=== PATIENT | female | born 1955 | race Caucasian/White ===

== ENCOUNTER 2022-01-15 11:32 | Outpatient (CLI) | payer MEDICARE, MEDICAID, SELFPAY ==
--- NOTE | 2022-01-15 11:30 | RT.EKG_ITS ---
APPROVED REPORT Exam: Resting ECG Reason for Exam: Chest pain Patient Location: O HR:59 bpm ECG Measurements Heart Rate 59 AXIS NH 169 P 64 QRSd 94 QRS 30 QT 405 T 40 QTc 402 Conclusion Sinus rhythm...normal P axis, V-rate 50- 99 Probable left atrial enlargement...P >50mS, <-0.10mV V1 Poor R wave progression
== END 2022-01-15 11:33 | disposition home or self-care (01) ==
LOC: DI.CM 11:32
PROVIDERS: Visit Provider Nurse Practitioner Family
DX: R07.9 Chest pain, unspecified (principal)
CPT/HCPCS: 93010

== ENCOUNTER 2022-01-15 12:27 | Emergency (ER) | payer MEDICARE, MEDICAID, SELFPAY ==
[2022-01-15 12:30] VITALS: BP 179/84; PULSE 60; RESP 18; TEMP 36.8; O2SAT 98
--- NOTE | 2022-01-15 12:30 | RT.EKG_ITS ---
APPROVED REPORT Exam: Resting ECG Reason for Exam: chest pain Patient Location: E HR:60 bpm ECG Measurements Heart Rate 60 AXIS CA 166 P 60 QRSd 94 QRS 14 QT 408 T 16 QTc 408 Conclusion Sinus rhythm...normal P axis, V-rate 60- 99
--- NOTE | 2022-01-15 12:45 | DI.RAD_ITS ---
Exam(s) XR CHEST 2V PA LATERAL EXAM: XR CHEST 2V PA LATERAL CLINICAL HISTORY: chest pain. TECHNIQUE: 2D digital imaging was performed. COMPARISON: CR CHEST 2 VIEWS PA,LAT from 10/05/2017 FINDINGS: 2 views: Heart size is slightly prominent, unchanged. The mediastinum is not widened. Lungs are clear. No infiltrates nor pleural effusions. No pulmonary edema. No pneumothorax. Mild scoliosis again noted. IMPRESSION: No acute pulmonary findings. DATA REPOSITORY: RADIATION DOSE DELIVERED:
--- NOTE | 2022-01-15 12:56 | ED.GENADUL_ITS ---
Discharge Plan Disposition Patient Disposition: STILL A PATIENT Condition: Stable Discharge Details Clinical Impression: Right-sided chest pain Primary Care Provider: Mariza Carpenter ED Provider: Rivas Mendoza Home Meds and New Rx's Prescriptions: No Action nitroglycerin [Nitrostat] 0.4 MG tablet, sublingual 0.4 mg Sublingual Q5 MIN PRN X3 PRN (Reason: Chest Pain) Qty: 10 0RF aspirin 81 MG tablet,chewable 81 mg PO DAILY 0RF Medical Decision Making This is a 66-year-old female, current smoker, presenting for right-sided chest pain that radiates to her back intermittently for the past 8 days. Nothing makes it worse or better. She is currently asymptomatic. Clinically she appears well, nontoxic. Plan is to initiate cardiac work-up including a D-dimer Initial laboratory values reveal no evidence of leukocytosis, anemia, thrombocytopenia. Her INR is 1.1. D-dimer is 1210, will pursue CTA of the chest. Electrolytes unremarkable. Normal renal function. Initial troponin less than 50. COVID-negative. Lipase 97 Patient remains asymptomatic. Agreeable to obtaining CTA of the chest and a delta troponin Medical Records Medical records reviewed: Yes I reviewed the patient's medical records. Imaging Data Radiologic Study: Attestation: I personally reviewed and interpreted this imaging study as follows: Imaging: X-Ray Radiologist's impression: Exam(s) XR CHEST 2V PA ? LATERAL EXAM:? XR CHEST 2V PA ? LATERAL CLINICAL HISTORY: ? chest pain. ? TECHNIQUE:? 2D digital imaging was performed. COMPARISON:? CR CHEST 2 VIEWS PA,LAT from 10/05/2017 FINDINGS: 2 views: Heart size is slightly prominent, unchanged.? The mediastinum is not widened. Lungs are clear.? No infiltrates nor pleural effusions. No pulmonary edema.? No pneumothorax. Mild scoliosis again noted. IMPRESSION: No acute pulmonary findings. Lab Data Lab results reviewed: Yes I reviewed the patient's lab results. Labs: Laboratory Tests Range/Units 01/15/22 01/15/22 01/15/22 13:05 13:10 13:10 WBC (4.4-10.8) 10^3/uL 4.56 RBC (3.93-5.22) 10^6/uL 4.45 Hgb (11.2-15.7) g/dL 13.4 Hct (36.0-46.0) % 40.7 MCV (80-95) fL 92 MCH (27.0-33.0) pg 30.1 MCHC (32.0-36.0) % 32.9 RDW (11.7-14.6) % 13.6 Plt Count (130-400) 10^3/uL 230 MPV (8.0-11.0) fL 8.8 Immature Gran % 0.2 Neutrophils % 60.8 Lymphocytes % 22.1 Monocytes % 10.3 Eosinophils % 5.5 Basophils % 1.1 Nucleated RBC % (0.0-0.3) % 0.0 Absolute Neutrophils (1.2-6.7) 10^3/uL 2.77 Absolute Lymphocytes (1.2-3.4) 10^3/uL 1.01 L Absolute Monocytes (0.1-0.8) 10^3/uL 0.47 Absolute Eosinophils (0.0-0.7) 10^3/uL 0.25 Absolute Basophils (0.0-0.2) 10^3/uL 0.05 PT (9.3-11.0) sec INR (0.9-1.1) APTT (21.0-27.5) sec D-Dimer (<500) ng/mlFEU Sodium (136-145) mmol/L 140 Potassium (3.5-5.1) mmol/L 4.3 Chloride (98-107) mmol/L 103 Carbon Dioxide (21.0-32.0) mmol/L 31.2 Anion Gap (3-11) mmol/L 5.8 BUN (7-18) mg/dL 15 Creatinine (0.55-1.02) mg/dL 0.8 Estimated GFR/1.73 m2 (mL/min/1.73m2) >= 60.00 Glucose (74-106) mg/dL 95 Calcium (8.5-10.1) mg/dL 8.7 Magnesium (1.8-2.4) mg/dL 1.8 Total Bilirubin (0.2-1.0) mg/dL 0.3 AST (15-37) U/L 47 H ALT (14-59) U/L 40 Alkaline Phosphatase (46-116) U/L 162 H Troponin I (<or=60) ng/L < 50 Total Protein (6.4-8.2) g/dL 7.5 Albumin (3.4-5.0) g/dL 3.9 Lipase (73-393) U/L COVID-19 Source Nasal/Nares SARS-CoV-2 (PCR) (Negative) Negative Range/Units 01/15/22 01/15/22 13:10 13:10 WBC (4.4-10.8) 10^3/uL RBC (3.93-5.22) 10^6/uL Hgb (11.2-15.7) g/dL Hct (36.0-46.0) % MCV (80-95) fL MCH (27.0-33.0) pg MCHC (32.0-36.0) % RDW (11.7-14.6) % Plt Count (130-400) 10^3/uL MPV (8.0-11.0) fL Immature Gran % Neutrophils % Lymphocytes % Monocytes % Eosinophils % Basophils % Nucleated RBC % (0.0-0.3) % Absolute Neutrophils (1.2-6.7) 10^3/uL Absolute Lymphocytes (1.2-3.4) 10^3/uL Absolute Monocytes (0.1-0.8) 10^3/uL Absolute Eosinophils (0.0-0.7) 10^3/uL Absolute Basophils (0.0-0.2) 10^3/uL PT (9.3-11.0) sec 11.3 H INR (0.9-1.1) 1.1 APTT (21.0-27.5) sec 24.1 D-Dimer (<500) ng/mlFEU 1210 H Sodium (136-145) mmol/L Potassium (3.5-5.1) mmol/L Chloride (98-107) mmol/L Carbon Dioxide (21.0-32.0) mmol/L Anion Gap (3-11) mmol/L BUN (7-18) mg/dL Creatinine (0.55-1.02) mg/dL Estimated GFR/1.73 m2 (mL/min/1.73m2) Glucose (74-106) mg/dL Calcium (8.5-10.1) mg/dL Magnesium (1.8-2.4) mg/dL Total Bilirubin (0.2-1.0) mg/dL AST (15-37) U/L ALT (14-59) U/L Alkaline Phosphatase (46-116) U/L Troponin I (<or=60) ng/L Total Protein (6.4-8.2) g/dL Albumin (3.4-5.0) g/dL Lipase (73-393) U/L 97 COVID-19 Source SARS-CoV-2 (PCR) (Negative) ECG Data Attestation: I personally reviewed and interpreted this ECG (s) as follows: Interpretation: Sinus rhythm, ventricular rate of 60, no STEMI HPI General Mode of arrival: ambulatory . Date/Time Provider Initiated Documentation: 01/15/22 12:41 . Limitations to Documentation: no limitations . Information obtained by: patient . HPI Narrative: This is a 66-year-old female who reports that she does not typically seek medical attention, has not been evaluated and likely 4 or 5 years, current smoker, presenting to the ER for 8-day history of intermittent right-sided chest pain. Nothing makes the pain worse or better. It does radiate to her right scapula. She reports that she was seen at the urgent care and sent here for further evaluation. She denies recent illness or trauma. Denies headache, fever, shortness of breath, cough, abdominal pain, nausea, vomiting, change in bowel or bladder function, pain or swelling her legs. She does report that the pain on the right side of her chest has been intermittent and ranges anywhere from a 2 out of 10 up to an 8 out of 10, a pressure, at times sharp. She is currently asymptomatic. Related Data Home Medications Medication Instructions Recorded Confirmed aspirin 81 mg chewable tablet 81 mg PO DAILY 10/06/17 01/15/22 nitroglycerin 0.4 mg sublingual 0.4 mg sublingual Q5 MIN PRN X3 10/06/17 01/15/22 tablet (Nitrostat) PRN Chest Pain #10 tabs Previous Rx's Medication Instructions Recorded aspirin 81 mg chewable tablet 81 mg PO DAILY 10/06/17 nitroglycerin 0.4 mg sublingual 0.4 mg sublingual Q5 MIN PRN X3 10/06/17 tablet (Nitrostat) PRN Chest Pain #10 tabs Allergies Allergy/AdvReac Type Severity Reaction Status Date / Time No Known Allergies Allergy Unverified 01/15/22 11:27 General Stated Complaint: Chest Pain JOLEEN: 3 Review of Systems Constitutional Constitutional: Denies fatigue, Denies fever(s), Denies headache(s) and Denies weakness ENT Ears, Nose, Mouth, and Throat: Denies headache(s) and Denies neck pain Cardiovascular Cardiovascular: Reports chest pain and Denies dyspnea Respiratory Respiratory: Denies cough and Denies dyspnea Gastrointestinal Gastrointestinal: Denies abdominal pain, Denies nausea and Denies vomiting Musculoskeletal Musculoskeletal: Reports back pain, Denies neck pain, Denies numbness and Denies tingling Integumentary/Breasts Skin/Breast: Denies rash Neurologic Neurologic: Denies headache(s), Denies numbness, Denies tingling and Denies weakness Endocrine Endocrine: Denies fatigue Hematologic/Lymphatic Hematologic/Lymphatic: Denies easy bleeding and Denies easy bruising PFSH All Active Problems (Updated 01/15/22 @ 14:54 by NICOLAS Hoyt) Right-sided chest pain (Acute) Medical History Ovarian cyst, left Tobacco use Surgical History section finger surgery Social History Smoking/Tobacco Use Status: Current every day Tobacco Type: cigarettes Smoking risk assessment performed?: Yes Alcohol Intake: current Alcohol Intake frequency: 0-2 drinks per day Alcohol type: wine Drug use: Never Substance use type: does not use Do you feel safe at home: Yes Do you feel safe in your relationship?: Yes Exam Const General: cooperative, healthy appearing, comfortable and no acute distress Orientation: alert and awake [facility] Head: normal to inspection, normocephalic and atraumatic Face and sinus: normal facial exam Mouth: moist mucous membranes Eyes General: appearance normal, both eyes and all related structures Conjunctivae: conjunctivae normal Neck Neck: normal visual inspection, full ROM, trachea midline and supple Chest Chest: normal inspection of the chest and normal palpation of entire chest wall Resp Effort & Inspection: normal respiratory effort and able to speak in complete sentences Auscultation: clear to auscultation bilaterally Cardio Rate: regular rate Rhythm: regular rhythm GI Palpation: soft, not firm, no guarding, no pulsatile masses and nontender Back/Spine/Pelvis Back: no CVA tenderness and No back tenderness Skin General skin exam: no rashes or lesions noted Neuro General: patient alert, patient awake, moves all extremities and no focal motor deficits Cognition: normal cognition Speech: speech normal Gait: normal gait Motor: muscle tone normal throughout Sensory Exam: no sensory deficits noted Extrem General: normal to inspection, full ROM, capillary refill normal, no pedal edema and no calf tenderness Psych Appearance: grossly normal Mental Status: mental status grossly normal Course Vital Signs Vital signs: Vital Signs Temperature 36.8 C 01/15/22 12:30 Pulse 60 01/15/22 12:30 Respiratory Rate 18 01/15/22 12:30 Blood Pressure 179/84 H 01/15/22 12:30 Pulse Oximetry 98 01/15/22 12:30 Temperature 36.8 C 01/15/22 12:30 Temperature Source Temporal Artery Scan 01/15/22 12:30 Pulse 60 01/15/22 12:30 Respiratory Rate 18 01/15/22 12:30 Blood Pressure 179/84 H 01/15/22 12:30 Blood Pressure Position Sitting 01/15/22 12:30 Pulse Oximetry 98 01/15/22 12:30 Oxygen Delivery Method Room Air 01/15/22 12:30 Oxygen Flow Rate 0 01/15/22 12:30 Comment 01/15/22 12:30
[2022-01-15 13:10] LABS: Source Nasal/Nares
[2022-01-15 13:20] LABS: Abs Immature Grans 0.01 10^3/uL (0.0-0.06); Absolute Basophil Count 0.05 10^3/uL (0.0-0.2); Absolute Eosinophil Count 0.25 10^3/uL (0.0-0.7); Absolute Lymphocyte Count 1.01 10^3/uL (1.2-3.4); Absolute Monocyte Count 0.47 10^3/uL (0.1-0.8); Absolute Neutrophil Count 2.77 10^3/uL (1.2-6.7); Basophils % 1.1; Eosinophils % 5.5; HCT 40.7 % (36.0-46.0); HGB 13.4 g/dL (11.2-15.7); Immature Grans % 0.2; Lymphocytes % 22.1; MCH 30.1 pg (27.0-33.0); MCHC 32.9 % (32.0-36.0); MCV 92 fL (80-95); MPV 8.8 fL (8.0-11.0); Monocytes % 10.3; Neutrophils % 60.8; Platelet Count 230 10^3/uL (130-400); RBC 4.45 10^6/uL (3.93-5.22); RDW 13.6 % (11.7-14.6); RDW-SD 45.9 fL; WBC 4.56 10^3/uL (4.4-10.8)
[2022-01-15 13:34] LABS: INR 1.1 (0.9-1.1); PTT Activated 24.1 sec (21.0-27.5); Prothrombin Time 11.3 sec (9.3-11.0)
[2022-01-15 13:38] LABS: Lipase 97 U/L (73-393)
[2022-01-15 13:40] LABS: ALT 40 U/L (14-59); AST 47 U/L (15-37); Albumin 3.9 g/dL (3.4-5.0); Alkaline Phosphatase 162 U/L (46-116); Anion Gap 5.8 mmol/L (3-11); BUN 15 mg/dL (7-18); Bilirubin, Total 0.3 mg/dL (0.2-1.0); CO2 31.2 mmol/L (21.0-32.0); CREATININE 0.8 mg/dL (0.55-1.02); Calcium 8.7 mg/dL (8.5-10.1); Chloride 103 mmol/L (98-107); Glucose 95 mg/dL (74-106); Magnesium 1.8 mg/dL (1.8-2.4); Potassium 4.3 mmol/L (3.5-5.1); Sodium 140 mmol/L (136-145); Total Protein 7.5 g/dL (6.4-8.2); Troponin I < 50 ng/L (<or=60)
[2022-01-15 13:48] LABS: COVID-19 PCR Negative (Negative)
[2022-01-15 13:51] LABS: D-Dimer 1210 ng/mlFEU (<500)
[2022-01-15 14:15] VITALS: BP 175/78; PULSE 54; O2SAT 98
[2022-01-15 14:18] VITALS: BP 171/82; PULSE 55; RESP 18; TEMP 36.4; O2SAT 98
--- NOTE | 2022-01-15 14:30 | DI.CT_ITS ---
Exam(s) CT CHEST PE CTA EXAM: CT CHEST PE CTA CLINICAL HISTORY: R sided chest pain, elevated dimer. TECHNIQUE: Imaging Protocol: CT angiography of the chest was performed using pulmonary embolus juan luis col. Multi planar reconstructions were performed. CONTRAST MATERIAL: Intravenous: Omnipaque 350 Contrast volume: 62 cc COMPARISON: CR XR CHEST 2V PA LATERAL from 01/15/2022 FINDINGS: CHEST: PULMONARY ARTERIES: There are no intraluminal filling defects to suggest acute pulmonary emboli. LUNGS: There is symmetrical dependent markings in both lower lobes, not associated with pleural effus ions.. No significant focal findings in the trachea and mainstem bronchi. MEDIASTINUM: There is no hilar nor mediastinal adenopathy. Visualized thyroid unremarkable. CARDIAC: Cardiomegaly. No pericardial effusion.Caliber of the thoracic aorta is upper normal.. No d issection. Ventricular ratio is 1/1 PARTIALLY VISUALIZED UPPERMOST ABDOMEN: No obvious findings OSSEOUS: No significant osseous lesions.. IMPRESSION: 1. No evidence of acute pulmonary emboli. No evidence of pulmonary infarction.No pleural effusions. 2. Mild increased markings both lower lobes. No air bronchograms. No pleural effusions. 3. Cardiomegaly. No pericardial. No evidence of aortic dissection. RADIATION DOSE DELIVERED: 259.04mGy.cm Total DLP DATA REPOSITORY: All CT scans at this facility are submitted to the National Radiology Data Registry (NRDR) Dose Index Registry (DIR) with the [employer] (ACR). RADIATION OPTIMIZATION: All CT scans at this facility use at least one of these dose optimization te chniques: automated exposure control; mA and/or kV adjustment per patient size (includes targeted exa ms where dose is matched to clinical indication); or iterative reconstruction.
[2022-01-15] MEDS: Omnipaque 350 MG/ML 100 ML BTL IJ (16:12)
[2022-01-15] MEDS: Normal Saline Flush 10 ML SYR IVP (16:13)
--- NOTE | 2022-01-15 16:30 | RT.EKG_ITS ---
APPROVED REPORT Exam: Resting ECG Reason for Exam: repeat ekg Patient Location: E HR:51 bpm ECG Measurements Heart Rate 51 AXIS ND 170 P 66 QRSd 96 QRS 13 QT 448 T 10 QTc 412 Conclusion Sinus bradycardia...rate< 60 Physician: inverted t wave in III, no stemi
[2022-01-15 16:56] LABS: Troponin I < 50 ng/L (<or=60)
--- NOTE | 2022-01-15 17:21 | NUR.NOTE ---
Nursing Note: Referral faxed to PCP for chest pain/ED follow up within 1 week.
--- NOTE | 2022-01-15 17:23 | NUR.NOTE ---
Nursing Note: Request for regular exercise treadmill test/stress test/ for chest pain, faxed to [facility]
[2022-01-15 17:39] VITALS: BP 164/85; PULSE 51; RESP 16; TEMP 36.6; O2SAT 98
--- NOTE | 2022-01-15 19:36 | ED.FU.B_ITS ---
Follow Up Plan: Care is accepted in signout from Rivas Mendoza, physician assistant loan processor pending CTA and repeat troponin, CTA does not show evidence of acute process repeat troponin was negative Patient was given outpatient stress test order form and given referral to PCP within the next 24 to 48 hours She is discharged home in stable condition pain-free, alert, oriented with appropriate return precautions discussed in detail Results of these tests were reviewed with patient including negative CTA negative repeat troponin EKG is baseline when compared to prior, please see my physician's documentation
== END 2022-01-15 17:39 | disposition home or self-care (01) ==
PROVIDERS: Physician Assistant; Emergency Provider Physician Assistant; PCP Family Medicine
DX: R07.9 Chest pain, unspecified (principal); R79.1 Abnormal coagulation profile; F17.210 Nicotine dependence, cigarettes, uncomplicated; Z20.822 Contact with and (suspected) exposure to COVID-19
CPT/HCPCS: 36415; 71275; 80053; 83690; 87635; 93005; 99285; 71046; 83735; 84484; 85025; 85379; 85610; 85730; 93010; J3490

== ENCOUNTER 2022-01-17 11:59 | Emergency (ER) | payer MEDICARE, MEDICAID, SELFPAY ==
[2022-01-17 12:06] VITALS: BP 151/88; PULSE 65; RESP 14; TEMP 36; O2SAT 98
--- NOTE | 2022-01-17 13:32 | ED.GENADUL_ITS ---
Discharge Plan Disposition Patient Disposition: HOME Condition: Stable Discharge Details Clinical Impression: Herpes zoster Primary Care Provider: Mariza Carpenter ED Provider: Patrick Montejo Home Meds and New Rx's Prescriptions: New valacyclovir 1 gram tablet 1,000 mg PO TID 10 Days Qty: 30 0RF lidocaine 5 % cream 1 applic topical TID PRN (Reason: pain) Qty: 30 0RF No Action nitroglycerin [Nitrostat] 0.4 MG tablet, sublingual 0.4 mg Sublingual Q5 MIN PRN X3 PRN (Reason: Chest Pain) Qty: 10 0RF aspirin 81 MG tablet,chewable 81 mg PO DAILY 0RF Discharge Instructions Instructions: Shingles (ED) Additional Instructions: Please use medication as prescribed and return to the emergency department for any new or significant worsening symptoms. If you are not having improvement of your symptoms over the next 5 days please call your primary care provider and arrange follow-up appointment for recheck. Referrals: Mariza Carpenter MD [Primary Care Provider] - (As needed for reassessment) Discharge Data Discharge Date/Time-TO BE ENTERED AT DEPARTURE: 01/17/22 13:46 Medical Decision Making Chest pain for approximately 1 week with emergency department evaluation 2 days ago. Over the past 24 hours patient has started noting rash. Physical exam shows an obvious herpes zoster rash to the right side dermatome T6. Exam is otherwise unremarkable. Will prescribe antivirals. After discussion of diagnosis and plan of care patient has no further needs, questions, or concerns and states clear understanding to return to the emergency department for any worsening symptoms. This documentation was generated using [employer] dictation system, please disregard any oddities of phrase or misspellings. HPI General Mode of arrival: ambulatory . Date/Time Provider Initiated Documentation: 01/17/22 12:47 . Limitations to Documentation: no limitations . Information obtained by: patient, RN notes reviewed and old records reviewed . History of Present Illness 66 year old F presents to the emergency department with the chief complaint of rash , described as moderate, with intensity rated at 6. Quality is described as burning and sharp, and is localized to the chest. Patient reports radiation to back. Patient started experiencing this day(s) (1) and it has been constant. No relieving factors improve symptom(s), No exacerbating factors reported . Patient notes chest pain. Patient did receive the following treatments prior to arrival, none Related Data Home Medications Medication Instructions Recorded Confirmed aspirin 81 mg chewable tablet 81 mg PO DAILY 10/06/17 01/17/22 nitroglycerin 0.4 mg sublingual 0.4 mg sublingual Q5 MIN PRN X3 10/06/17 01/17/22 tablet (Nitrostat) PRN Chest Pain #10 tabs lidocaine 5 % topical cream 1 applic topical TID PRN pain #30 01/17/22 grams valacyclovir 1 gram tablet 1,000 mg PO TID 10 days #30 tabs 01/17/22 Previous Rx's Medication Instructions Recorded aspirin 81 mg chewable tablet 81 mg PO DAILY 10/06/17 nitroglycerin 0.4 mg sublingual 0.4 mg sublingual Q5 MIN PRN X3 10/06/17 tablet (Nitrostat) PRN Chest Pain #10 tabs lidocaine 5 % topical cream 1 applic topical TID PRN pain #30 01/17/22 grams valacyclovir 1 gram tablet 1,000 mg PO TID 10 days #30 tabs 01/17/22 Allergies Allergy/AdvReac Type Severity Reaction Status Date / Time No Known Allergies Allergy Unverified 01/17/22 12:08 General Stated Complaint: RashLesion JOLEEN: 4 Review of Systems Constitutional Constitutional: Denies chills, Denies fever(s), Denies malaise and Denies weakness ENT Ears, Nose, Mouth, and Throat: Denies lip swelling, Denies sore throat and Denies throat swelling Cardiovascular Cardiovascular: Reports chest pain, Denies rapid heart rate, Denies pedal edema and Denies dyspnea Respiratory Respiratory: Denies cough, Denies dyspnea and Denies wheezing Gastrointestinal Gastrointestinal: Denies abdominal pain Musculoskeletal Musculoskeletal: Denies back pain, Denies myalgias and Denies tingling Integumentary/Breasts Skin/Breast: Reports as per HPI, Reports erythema, Reports rash and Reports skin pain Neurologic Neurologic: Reports radicular pain, Denies tingling and Denies weakness Allergic/Immunologic Allergic/Immunologic: Denies lip swelling, Denies throat swelling and Denies wheezing PFSH All Active Problems Right-sided chest pain (Acute) Herpes zoster (Acute) Medical History Ovarian cyst, left Tobacco use Surgical History section finger surgery Social History Smoking/Tobacco Use Status: Current every day Tobacco Type: cigarettes Smoking risk assessment performed?: Yes Alcohol Intake: current Alcohol Intake frequency: 0-2 drinks per day Alcohol type: wine Drug use: Never Substance use type: does not use Do you feel safe at home: Yes Do you feel safe in your relationship?: Yes Exam Const General: cooperative, no acute distress and not ill appearing Orientation: alert, awake and oriented x3 HENMT Mouth: moist mucous membranes Resp Effort & Inspection: normal respiratory effort, able to speak in complete sentences and no respiratory distress Cardio Rate: regular rate Rhythm: regular rhythm Skin Rashes: rashes noted vesicles right truncal distribution and tender Neuro General: patient alert, patient awake, patient oriented x3, moves all extremities and no focal motor deficits Sensory Exam: no sensory deficits noted Course Vital Signs Vital signs: Vital Signs Temperature 36.0 C L 01/17/22 12:06 Pulse 65 01/17/22 12:06 Respiratory Rate 14 01/17/22 12:06 Blood Pressure 151/88 H 01/17/22 12:06 Pulse Oximetry 98 01/17/22 12:06 Temperature 36.0 C L 01/17/22 12:06 Temperature Source Temporal Artery Scan 01/17/22 12:06 Pulse 65 01/17/22 12:06 Respiratory Rate 14 01/17/22 12:06 Respiratory Effort Non-Labored 01/17/22 12:09 Blood Pressure 151/88 H 01/17/22 12:06 Blood Pressure Position Sitting 01/17/22 12:06 Pulse Oximetry 98 01/17/22 12:06 Oxygen Delivery Method Room Air 01/17/22 12:06 Oxygen Flow Rate 0 01/17/22 12:06 Pain Level 0 01/17/22 12:06 PAWSS Have you Been Recently Intoxicated or Drunk Within the Last 30 days?: No Have you Ever Experienced Previous Episodes of Alcohol Withdrawal?: No Have you ever Experienced Withdrawal Seizures?: No Have you ever Experienced Delirium Tremens(DT)s?: No Have you ever undergone Alcohol Rehabilitation Treatment (i.e, inpt ot outpatient treatment programs)?: No Have you ever Experienced Blackouts?: No Have you ever Combined Alcohol with other Downers within the last 90 days?: No Have you ever Combined Alcohol with any other Substance of Abuse during the last 90 days?: No Positive Blood Alcohol level on Presentation? [PCS.BAL]: No Evidence of Increased Autonomic Activity (i.e. HR>120, tremor, sweating, agitation, nausea)?: No Result: 0
== END 2022-01-17 13:46 | disposition home or self-care (01) ==
PROVIDERS: Emergency Provider Nurse Practitioner Family; PCP Family Medicine
DX: B02.9 Zoster without complications (principal)
CPT/HCPCS: 99283

== ENCOUNTER 2022-01-24 10:55 | Outpatient (REF) | payer MEDICARE, SELFPAY | END 2022-01-24 10:56 | disposition home or self-care (01) | LOC: LBN 10:55 | PROVIDERS: PCP Family Medicine; Visit Provider Nurse Practitioner Family | DX: L08.0 Pyoderma (principal) | CPT/HCPCS: 87070; 87205 ==

== ENCOUNTER 2022-04-07 04:09 | Outpatient (CLI) | payer MEDICARE, MEDICAID, SELFPAY ==
[2022-04-07 13:15] LABS: Calculated LDL 92 mg/dL (<100); Cholesterol 225 mg/dL (<200); HDL Cholesterol 123 mg/dL (40-60); TSH (W/Ref FT4) 0.89 uIU/mL (0.36-3.74); Triglyceride 53 mg/dL (<150)
[2022-04-08 09:15] LABS: Hepatitis C Ab w Rflx HCV PCR Negative (Negative)
== END 2022-04-07 04:10 | disposition home or self-care (01) ==
LOC: LOS 04:09
PROVIDERS: PCP Family Medicine; Visit Provider Family Medicine
DX: Z00.00 Encounter for general adult medical examination without abnormal findings (principal); E03.9 Hypothyroidism, unspecified; E78.89 Other lipoprotein metabolism disorders; Z11.59 Encounter for screening for other viral diseases
CPT/HCPCS: 36415; 80061; 86803; 84443

== ENCOUNTER → 2022-04-30 02:46 | Outpatient (CLI) | payer MEDICARE, SELFPAY ==
--- NOTE | 2022-04-30 08:15 | DI.DEXA_ITS ---
Exam(s) XR DEXA BONE DENSITY W/WO DOREEN EXAM: XR DEXA BONE DENSITY W/WO DOREEN CLINICAL HISTORY: screening for osteoporosis, menopausal disorder, n95.9 TECHNIQUE: COMPARISON: CT CT CHEST PE CTA from 01/15/2022 FINDINGS: DEXA scan was performed according to the usual protocol. Please see the accompanying data sheets. F indings for left hip scanning are T-score -2.4 with left femoral neck T-score -1.8. Findings for lumbar spine scanning are T-score -2.3. Findings for left forearm scanning are T-score -2.9. IMPRESSION: The measurements are consistent with osteoporosis according to the WHO criteria. Lateral vertebral s canogram shows no definite vertebral compression fracture. RADIATION DOSE DELIVERED: Total DLP
--- NOTE | 2022-04-30 15:17 | DI.MAMMO_ITS ---
Exam(s) MAMMO SCREENING EXAM: MAMMO SCREENING CLINICAL HISTORY: screening,z12.39 TECHNIQUE: Mammograms were interpreted according to the usual protocol including computer analysis w Metabolon system, tomosynthesis and C-view imaging. COMPARISON: FINDINGS: The breasts are of moderate density with fairly symmetrical distribution of fibroglandular tissue. S ome apparent asymmetric fibroglandular tissue is present in the upper outer quadrant of the right braden ast as compared to the left. No mass or clumped microcalcification is identified. No prior examinat ions available for comparison. IMPRESSION: No specific evidence of malignancy at this time. Routine screening examinations are suggested at yea rly intervals in this age group according to the ACS ACR guidelines. BI-RADS Category 1 - Negative Breast Density - Category B - Scattered areas of fibroglandular density
== END ==
PROVIDERS: PCP Family Medicine; Visit Provider Family Medicine
DX: Z12.31 Encounter for screening mammogram for malignant neoplasm of breast (principal); N95.8 Other specified menopausal and perimenopausal disorders; M81.0 Age-related osteoporosis without current pathological fracture
CPT/HCPCS: 77063; 77067; 77080

== ENCOUNTER → 2022-07-01 11:13 | Outpatient (BNVA) | payer MEDICARE, SELFPAY | PROVIDERS: PCP Family Medicine; Referring Provider Family Medicine; Visit Provider Surgery | DX: R19.5 Other fecal abnormalities (principal); K59.09 Other constipation; M19.031 Primary osteoarthritis, right wrist; M81.6 Localized osteoporosis [Lequesne]; F17.210 Nicotine dependence, cigarettes, uncomplicated | CPT/HCPCS: 99213; 99242 ==

== ENCOUNTER 2022-07-28 06:11 | Day surgery (SDC) | payer MEDICARE, SELFPAY ==
--- NOTE | 2022-07-27 19:23 | PDOC.DSDIS_ITS ---
Date of service: 07/28/22 Time of Service: 08:12 Discharge Plan Disposition Patient Disposition: Home Condition: Good Discharge Details Reason For Visit: Colonoscopy Attending Provider: Seun Hooks Primary Care Provider: Mariza Carpenter Home Meds and New Rx's Prescriptions: Continued metoprolol succinate 25 mg tablet extended release 24 hr 25 mg PO DAILY Qty: 90 3RF Discontinued bisacodyl [Dulcolax (bisacodyl)] 5 mg tablet,delayed release (DR/EC) 5 mg PO ONCE Qty: 4 0RF Rx Instructions: Take according to provider's instructions for colonoscopy prep. polyethylene glycol 3350 17 gram/dose powder 17 g PO ONCE Qty: 238 0RF Rx Instructions: To be taken as directed by prescriber's office for colonoscopy prep. Discharge Instructions Instructions: Diverticulosis (GEN), Diverticulosis Diet (GEN) Additional Instructions: Juani, we were able to complete your colonoscopy without any difficulty today. Your preparation was excellent. I did not see any evidence of colon cancers. Incidentally, you have some diverticulosis. I have attached some information here on general management of diverticular disease. On occasion, diverticulosis can cause some blood to accumulate in your stool. It can occur in such small amounts, that many patients never notices it. This can cause Cologuard test to be positive. I suspect that is what happened for you. Because you have had a negative screening colonoscopy today, the general recommendation is to have another follow-up colonoscopy in 5-10 years. You could try the Cologuard test once again if you prefer. If that is negative, that would be very reassuring. As mentioned above, however, with diverticulosis, there is certainly the possibility of another false positive. If that were the case, then you would n eed to undergo the colonoscopy test once again. 1. If tolerated, consume a soft, low fiber diet for 1-2 days. 2. Do not drive, drink alcohol, operate machinery, make critical decisions, or do activities that require coordination or balance for 24 hours. 3. Because air was put into your colon during the procedure, expelling air from your rectum (passing gas or farting) is normal. 4. You may not have a bowel movement for 1-3 days because of the colonoscopy prep. This is normal. 5. Go directly to the emergency room if you notice any of the following: Develop chills (warm to touch), or if you have a thermometer and your temperature is above 101 Difficulty breathing or difficultly swallowing Persistent vomiting Severe abdominal pain, other than gas cramps Severe chest pain Black, tarry stools Any bleeding ? exceeding one tablespoon 6. Call your physician if the site where your intravenous was started becomes red, swollen, painful, and warm to touch. 7. Your physician has reviewed your pre-procedure medications. Please continue to take those medications as previously ordered. You will be given specific information/education regarding any changes to your medications before leaving. Stand Alone Forms: Anesthesia Discharge InstMarium Dunlap (DSU) Activity:: Activity as Tolerated Diet:: As Tolerated Discharge Orders Discharge Orders: Discharge Order (Routine); Ordered 07/27/22 Ordered By: Seun Hooks DS: Diagnosis Discharge Diagnosis (1) Positive colorectal cancer screening using Cologuard test: Status: Acute Asessment and Plan: Negative screening colonoscopy
--- NOTE | 2022-07-27 19:25 | COLE_ITS ---
Date of service: 07/28/22 Time of Service: 08:12 Colonoscopy Report Date of procedure: 07/28/22 Pre-op diagnosis general: Screening colonoscopy Post-op diagnosis procedure note: other (Sigmoid diverticulosis) Procedure: Colonoscopy Surgeon: Seun Hooks Anesthesia Type: General:No Airway Complications: None Disposition: same day Indications: Juani is a 66 year old woman with a positive cologuard test. Prep: Miralax/Dulcolax Procedure Start Time: 07:33 Procedure End Time: 07:55 Retraction Time: 14 Findings: Sigmoid diverticulosis Procedure Description: After the induction of monitored anesthetic care, and with the patient in left lateral decubitus position, I began by performing an external anorectal exam.? Perineum and skin were normal, as was the anal verge.? There was no evidence of external hemorrhoids.? Next, I performed a digital rectal exam.? I did not appr eciate any abnormal findings.? Next, I advanced a colonoscope into the rectal vault.? I performed retroflexion.? This was normal.? Using insufflation, I then advanced the colonoscope beyond the rectal folds and into the sigmoid colon before advancing towards the cecum.? The quality of the prep was excellent.? There was sigmoid diverticulosis. The scope was noted to be in the cecum by identification of the ileocecal valve and appendiceal orifice.? I then began withdrawing the colonoscope using repeated irrigation as necessary for full evaluation of the colonic mucosa. ?Once the scope was withdrawn to the level of the rectum, great care was taken to examine portions of the rectal folds.? Finally, the scope was withdrawn and the patient was brought to the same-day surgery recovery unit as the anesthetic wore off. ?The findings and instructions were shared with the patient prior to discharge.
[2022-07-28 06:27] VITALS: BP 151/78; PULSE 58; RESP 18; TEMP 36.3; O2SAT 97
[2022-07-28] MEDS: Lactated Ringers 1,000 ML 80 ML IV (06:40)
--- NOTE | 2022-07-28 06:55 | W.ANESPRE ---
General Info Date of Service Date Performed: 07/28/22 Height: 5 ft 5.5 in Weight: 66.8 kg Body Mass Index (BMI): 24.1 Surgical Procedure: Operation Date: 07/28/22 07:35 Proposed Procedure Side Surgeon p Colonoscopy possible Polypectomy Seun Hooks MD Meds Allergies and Home Medications Allergies Allergy/AdvReac Type Severity Reaction Status Date / Time No Known Allergies Allergy Unverified 07/28/22 06:33 Home Medication Medication Instructions Recorded metoprolol succinate 25 mg 25 mg PO DAILY #90 tabs 05/16/22 tablet,extended release 24 hr Current Visit Medications: Current Medications Generic Name Dose Route Start Last Admin Trade Name Freq PRN Reason Stop Dose Admin Hyoscyamine Sulfate 0.125 mg 07/27/22 19:26 Hyoscyamine 0.125 Mg Sl/Oral/Chew SL DIRECTED PRN Ringer's Solution 1,000 mls @ 80 mls/hr 07/28/22 06:00 07/28/22 06:40 IV 08/24/22 23:59 80 mls/hr INFUSION PATRICE Administration IV Miscellaneous Supplies 1 each 07/28/22 06:00 Iv Access IV 08/24/22 23:59 DIRECTED PATRICE Ondansetron HCl 4 mg 07/27/22 19:26 Ondansetron 4 Mg/2 Ml Vial IVP Q4H PRN PRN Nausea / Vomiting Sodium Chloride 0 ml 07/28/22 06:00 Normal Saline Flush 10 Ml Syr IV 08/24/22 23:59 PRN PRN Sodium Chloride 0 ml 07/28/22 06:00 Normal Saline 10 Ml Vial IJ 08/24/22 23:59 DIRECTED PRN Sterile Water 0 ml 07/28/22 06:00 Water,Injection,Sterile 10 Ml Vial IJ 08/24/22 23:59 DIRECTED PRN PFSH Active Problems Active Problems: Problem Status Onset Code Tobacco dependence due to cigarettes F17.210 Primary osteoarthritis, 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 Weight loss, unintentional R63.4 Osteoporosis ~04/30/22 M81.0 Positive colorectal cancer screening using Cologuard test ~05/02/22 R19.5 Chronic constipation K59.09 Medical History Medical History (Updated 07/28/22 @ 06:36 by Jessika Doe RN) History of palpitations negative echo and stress test Ovarian cyst, left pt states she doesnt remember this Surgical History Surgical History History of section Hx of fracture of finger Tobacco Smoking/Tobacco Use Status: Current every day Tobacco Type: cigarettes Counseling given: provider counseling Alcohol Alcohol Intake: current Alcohol intake frequency: 0-2 drinks per day Alcohol type: wine Substance Use Substance use: Never Substance use type: does not use Details: pt. states define smoke, I dont inhale and grow my own tobacco. Vital Signs and Lab Results Vital Signs Most Recent Vital Signs in EMR: Most Recent Vital Signs Temp Pulse Resp BP Pulse Ox 36.3 C L 58 L 18 151/78 H 97 07/28/22 06:27 07/28/22 06:27 07/28/22 06:27 07/28/22 06:27 07/28/22 06:27 Lab Results Blood Type / Crossmatch: No Data to Display Complete Blood Count: No Data to Display Complete Metabolic Panel: No Data to Display Liver Function Panel: No Data to Display Coagulation Panel: No Data to Display Cardiac Panel: No Data to Display Arterial Blood Gas: No Data to Display Venous Blood Gas: No Data to Display Pancreas Panel: No Data to Display Thyroid Panel: No Data to Display Infectious Disease: No Data to Display Blood Cultures: No Data to Display Toxicology Panel: No Data to Display Imaging and Studies Imaging and Studies Study information below may be from another EMR and interpreted by another provider. Please see original notes in EMR for more complete details. EKG Summary: Conclusion Sinus bradycardia...rate< 60 Physician: inverted t wave in III, no stemi I have reviewed and I agree with the emergency room physician's ECG interpretation. 01/15/22 Stress Test Summary: Summary: 1. Myocardial perfusion imaging: No myocardial perfusion defects noted. 2. The calculated left ventricular ejection fraction after stress: 53%. LV global systolic function is normal. No left ventricular regional motion abnormality. 3. Stress ECG conclusions: The stress ECG is negative. Rare ventricular ectopy. 4. Stress: The target heart rate was achieved. There is resting hypertension with an appropriate response to stress. Exercise capacity is above normal for age. 10/16/17 Echocardiogram Summary: Summary: 1. Left ventricle: The cavity size was normal. Wall thickness was normal. Systolic function was normal. The estimated ejection fraction was 60-65%. Wall motion was normal; there were no regional wall motion abnormalities. 2. Aortic valve: Trileaflet; mildly thickened leaflets. There was mild regurgitation. 3. Mitral valve: There was mild regurgitation. 4. Right ventricle: The cavity size was normal. Wall thickness was normal. Systolic function was normal. 5. Atrial septum: A patent foramen ovale cannot be excluded. 10/27/17 Anesthesia Assessment and Plan Anesthesia History Personal History: No History of Anesthesia Complications Family History: No Family History of Anesthesia Complications Exercise Tolerance Exercise Tolerance: Metabolic Equivalents>4 Pertinent Negatives Pertinent Negatives: No Symptoms of GERD, No Major Cardiovascular Symptoms or Complaints, No Major Pulmonary Symptoms or Complaints and No History of CVA/TIA Cardiac & Pulmonary Exam Cardiac Exam: Normal S1/S2 Heart Sounds Pulmonary Exam: Clear Bilateral Breath Sounds Implantable Cardiac Device Does patient have a Pacemaker or an ICD?: No Airway Exam Known Difficult Airway: No Mallampati Class: 2 Mouth Opening: Normal (> 3cm) Thyromental Distance: Greater than 3 cm Neck Range of Motion: Full ROM Neck Circumference: Normal Teeth Condition: Normal Dentition ASA Classification ASA Score: ASA 2 Emergency Case?: No NPO Status NPO Status: NPO Clears >2 hours, Solids >8 hours Anesthesia Plan Resuscitation Status: Full Code Anesthesia Technique: General Anesthesia Airway Planned: Natural Airway Monitors Used: Standard Monitors Preoperative Comments:: Recently started on metoprolol Positive coologard
[2022-07-28 07:20] VITALS: BMI 24.1
[2022-07-28 08:00] VITALS: BP 114/73; PULSE 60; RESP 16; TEMP 36.6; O2SAT 98
--- NOTE | 2022-07-28 08:24 | W.ANESPOSTOP ---
Postoperative Evaluation Date, Time and Location Date Performed: 07/28/22 Time Performed: 08:05 Patient Location: Day Surgery Unit Vital Signs Most Recent Imported Vital Signs: Most Recent Vital Signs Temp Pulse Resp BP Pulse Ox 36.6 C 60 16 114/73 98 07/28/22 08:00 07/28/22 08:00 07/28/22 08:00 07/28/22 08:00 07/28/22 08:00 Pain Score Most Recent Pain Score: Most Recent Pain Score Pain Level 0 07/28/22 08:00 Assessment Mental Status: Awake (Alert & Oriented to Patient Baseline) Airway and Respiratory Function: Patent airway with normal (patient baseline) respiratory exam Cardiovascular Function: Hemodynamically Stable Hydration Status: Adequately Hydrated Nausea & Vomiting: No Nausea or Vomiting Pain: Pt. Denies Any Pain Peripheral Nerve Block: Patient did not receive a nerve block
[2022-07-28 08:28] VITALS: BP 131/99; PULSE 56; RESP 18; TEMP 36.4; O2SAT 97
== END 2022-07-28 08:50 | disposition home or self-care (01) ==
PROVIDERS: PCP Family Medicine; Visit Provider Surgery
PROC: 0DJD8ZZ Inspection of Lower Intestinal Tract, Via Natural or Artificial Opening Endoscopic (ICD-10-PCS; CPT 45378; principal; 2022-07-28 07:30)
DX: R19.5 Other fecal abnormalities (principal); K57.30 Diverticulosis of large intestine without perforation or abscess without bleeding
CPT/HCPCS: 45378

== ENCOUNTER 2023-09-04 01:37 | Outpatient (CLI) | payer MEDICARE, SELFPAY ==
[2023-09-04 14:47] LABS: Abs Immature Grans 0.02 10^3/uL (0.0-0.06); Absolute Basophil Count 0.06 10^3/uL (0.0-0.2); Absolute Eosinophil Count 0.44 10^3/uL (0.0-0.7); Absolute Lymphocyte Count 2.73 10^3/uL (1.2-3.4); Absolute Monocyte Count 0.69 10^3/uL (0.1-0.8); Absolute Neutrophil Count 4.09 10^3/uL (1.2-6.7); Basophils % 0.7; Eosinophils % 5.5; HCT 39.5 % (36.0-46.0); HGB 13.1 g/dL (11.2-15.7); Immature Grans % 0.2; MCH 29.6 pg (27.0-33.0); MCHC 33.2 % (32.0-36.0); MCV 89 fL (80-95); MPV 8.9 fL (8.0-11.0); Monocytes % 8.6; Platelet Count 292 10^3/uL (130-400); RBC 4.43 10^6/uL (3.93-5.22); RDW 13.4 % (11.7-14.6); RDW-SD 44.2 fL; WBC 8.03 10^3/uL (4.4-10.8)
[2023-09-04 15:47] LABS: ALT 25 U/L (14-59); AST 22 U/L (15-37); Albumin 3.5 g/dL (3.4-5.0); Alkaline Phosphatase 157 U/L (46-116); BUN 16 mg/dL (7-18); Bilirubin, Total 0.5 mg/dL (0.2-1.0); CREATININE 0.6 mg/dL (0.55-1.02); Chloride 104 mmol/L (98-107); Glucose 85 mg/dL (74-106); Potassium 4.3 mmol/L (3.5-5.1); Sodium 141 mmol/L (136-145); Total Protein 7.4 g/dL (6.4-8.2)
== END 2023-09-04 01:38 | disposition home or self-care (01) ==
LOC: LBO 01:38
PROVIDERS: PCP Family Medicine; Visit Provider Family Medicine
DX: R63.4 Abnormal weight loss (principal)
CPT/HCPCS: 36415; 80053; 85025

== ENCOUNTER 2023-09-22 13:41 | Outpatient (REF) | payer MEDICARE, SELFPAY | END 2023-09-22 13:42 | disposition home or self-care (01) | LOC: LBN 13:41 | PROVIDERS: PCP Family Medicine; Visit Provider Physician Assistant | DX: L98.9 Disorder of the skin and subcutaneous tissue, unspecified (principal) | CPT/HCPCS: 87070; 87205 ==

== ENCOUNTER 2024-05-05 15:29 | Outpatient (CLI) | payer MEDICARE, SELFPAY ==
--- NOTE | 2024-05-05 12:00 | DI.MAMMO_ITS ---
Exam(s) MAMMO SCREENING EXAM: MAMMO SCREENING CLINICAL HISTORY: screening, Z12.39. TECHNIQUE: Bilateral full field digital CC and MLO mammographic images were obtained with 3D tomosyn thesis and utilizing computer aided detection (CAD). COMPARISON: Prior mammograms were reviewed. FINDINGS: Fibroglandular tissue pattern is moderately dense. No new left breast findings. Asymmetric tissue in the upper-outer quadrant breast unchanged April 2022. There are no new spiculated masses nor new malignant-appearing microcalcification groups. There is no significant architectural distortion nor skin thickening-retraction. IMPRESSION: No radiographic evidence of malignancy. BI-RADS Category 2 - Benign Findings Breast Density - Category C - Heterogeneously dense Breast density Category C or D implies that the patient has dense breast tissue. Dense breast tissue can make it harder to find cancer on a mammogram. Dense breast tissue is also associated with an incr eased risk of breast cancer. This information about the result of the mammogram report was provided to the patient to raise their awareness. Use this report when you speak with the patient about their risks for breast cancer, which includes their family history. At that time, you may recommend additional screening tests (Ultrasoun d or MRI) as these tests may add significant information. A negative radiographic report should not delay biopsy if a dominant or clinically suspicious mass is present. Up to ten percent of cancers are not identified on mammography. A negative report may reinforce clinical impression. Adenosis and dense breasts may obscure an underlying neoplasm. False positive reports average 6 to 10%. Patient will receive a letter notifying them of these results.
== END 2024-05-05 15:49 ==
LOC: DI 15:29
PROVIDERS: PCP Family Medicine; Visit Provider Family Medicine
DX: Z12.31 Encounter for screening mammogram for malignant neoplasm of breast (principal); R92.333 Mammographic heterogeneous density, bilateral breasts; D24.2 Benign neoplasm of left breast
CPT/HCPCS: 77063; 77067